=== PATIENT | male | born 1955 | race Caucasian/White ===

== ENCOUNTER 2017-10-09 19:14 | Emergency (ER) | payer OTHER ==
[~2017-10-09] VITALS: Ht 172.7 cm; Wt 90.7 kg
[2017-10-09] MEDS ORDERED: NEURONTIN300 MG PO (21:14)
--- NOTE | 2017-10-10 17:06 | EKG ---
[facility] [address] [facility] [place] [address] Signed Sinus rhythm with occasional premature ventricular complexes Left axis deviation Right bundle branch block Abnormal ECG No previous ECGs available Confirmed by OMAIRA JEAN BAPTISTE MD ([id number]) on 10/10/2017 5:06:34 PM Electronically Signed By: OMAIRA JEAN BAPTISTE MD 10/10/17 1706 PATIENT NAME: FRANKLYNJUAN JOSÉ Electrocardiogram DATE OF : 57 PHYSICIAN: OMAIRA JEAN BAPTISTE MD REPORT #: [id number] REPORT IS CONFIDENTIAL AND NOT TO BE RELEASED WITHOUT AUTHORIZATION
== END 2017-10-09 21:15 | disposition home or self-care (01) ==
LOC: ED 19:14
DX: R41.0 Disorientation, unspecified (principal); E11.9 Type 2 diabetes mellitus without complications; J44.9 Chronic obstructive pulmonary disease, unspecified; Z79.899 Other long term (current) drug therapy
CPT/HCPCS: 70450; 71045; 80053; 81001; 84484; 85025; 93005; 93010; 99284; G0480

== ENCOUNTER 2019-10-09 08:40 | Day surgery (SDC) | payer OTHER ==
[~2019-10-09] VITALS: Ht 172.7 cm; Wt 90.7 kg
--- NOTE | ~2019-10-09 | OR ---
[facility] [address] [place], [place] [address] Draft DATE OF OPERATION: 10/09/2019 SURGEON: Yony Gonzalez MD PREOPERATIVE DIAGNOSIS: Colon screening. POSTOPERATIVE DIAGNOSES: 1. Diverticulosis of colon. 2. Multiple polyps. PROCEDURE: Total colonoscopy to cecum with mucosal lift polypectomy (snare and Endo akbar tattoo) x3 and cold morcellation polypectomy x4. ANESTHESIA: Intravenous sedation, fentanyl 100 mcg and Versed 7 mg. INDICATION: A 64-year-old white man is a patient of Dr. Jimmy Mendoza, is here for a screening colonoscopy. He has no symptoms of bleeding diarrhea or constipation. He was due to have screening colonoscopy in 2008, but did not follow through with it at that time. This is his first colonoscopy. His family history is largely unknown regarding colon cancer. He understands the risks of bleeding, infection, and perforation related to colonoscopy and wished to proceed. FINDINGS: The prep was excellent. Complete colonoscopy was undertaken to the cecum. There were 3 polyps, all of them flat and adenomatous, 1 at 70 and other at 35, another at 33 cm. There was a small adenomatous polyp near a diverticulum in the right colon and a small similar such polyp at the rectosigmoid and 2 additional probably hyperplastic polyps of the rectum. All were excised completely. DESCRIPTION OF PROCEDURE: The patient was brought into the endoscopy suite and placed in lateral decubitus position, given intravenous sedation to the point of slurred speech and nystagmus with full cardiopulmonary monitoring. Digital rectal examination was normal. An Olympus video colonoscope was passed in the rectum and manipulated throughout the colon ultimately intubating the cecum. The ileocecal valve and appendiceal orifice were normal. The scope was withdrawn in the mid right colon was a small adenomatous polyp PATIENT NAME: JUAN JOSÉ ESTES OPERATIVE REPORT DATE OF : 57 REPORT #: [id number] PHYSICIAN: YONY GONZALEZ MD PCP: JIMMY MENDOZA MD REPORT IS CONFIDENTIAL AND NOT TO BE RELEASED WITHOUT AUTHORIZATION [facility] [address] [place], [place] [address] Draft adjacent to a diverticular opening. This polyp was excised with cold morcellation technique. The scope was withdrawn further and just beyond the splenic flexure at about 70 cm was a somewhat flat, somewhat suspicious adenomatous appearing polyp. Mucosal lift technique was deemed most advisable. On that basis, a sclerotherapy needle with spot tattoo material was injected allowing for mucosal lift. Using hot snare polypectomy technique, the mucosa was excised, the specimen was retrieved and passed for pathology. Scope was further withdrawn and a similar such lesion was noted at 38 cm, it was excised in the similar way 33 cm also excised similarly. Further withdrawal of scope showed a small adenomatous polyp of the rectosigmoid, which was excised with cold morcellation technique. Withdrawal to the rectum showed several small hyperplastic appearing polyps at least 2 of them were excised completely. Retroflexed view was otherwise normal. Scope was removed and the patient was taken to the recovery room in good condition. CONCLUSION DIAGNOSIS: 1. Multiple polyps. 2. Diverticulosis. PLAN: Recommend a repeat colonoscopy in 1 year due to the number of polyps excised. We will certainly review his pathology to be sure there is no dysplasia or other issues. Yony Gonzalez MD JM/MODL /[id number] cc: Jimmy Mendoza MD Copies: JIMMY MENDOZA MD ~ PATIENT NAME: JUAN JOSÉ ESTES OPERATIVE REPORT DATE OF : 57 REPORT #: [id number] PHYSICIAN: YONY GONZALEZ MD PCP: JIMMY MENDOZA MD REPORT IS CONFIDENTIAL AND NOT TO BE RELEASED WITHOUT AUTHORIZATION
[~2019-10-09 08:40] MED LIST: NEURONTIN300 MG PO
--- NOTE | 2019-10-09 10:58 | NUR ---
10/09/19 1058 Kelly Kay 1051 PATIENT ARRIVES TO PACU SLEEPING. AWAKENS WITH VERBAL STIMULI. RESP EVEN AND UNLABORED, NC AT 3 LITERS, TURNED OFF AFTER ARRIVAL TO PACU. 1052 PATIENT SLEEPING, AWAKENS WITH VERBAL STIMULI, FOLLOWS COMMANDS TO REPOSITION SELF ON TO BACK.
--- NOTE | 2019-10-12 10:46 | PATH ---
[facility] [address] [facility] [place] [address] Signed SPECIMEN(S): A ASCENDING POLYP SPECIMEN(S): B COLON POLYP AT 70 CM SPECIMEN(S): C COLON POLYP AT 38 CM SPECIMEN(S): D COLON POLYP AT 33 CM SPECIMEN(S): E RECTO SIGMOID POLYP SPECIMEN(S): F RECTAL POLYPS SPECIMEN SOURCE: A. ASCENDING POLYP B. COLON POLYP AT 70 CM C. COLON POLYP AT 38 CM D. COLON POLYP AT 33 CM E. RECTO SIGMOID POLYP F. RECTAL POLYPS CLINICAL HISTORY: Screening colonoscopy. Postop: Multiple polyps, diverticulosis. MICROSCOPIC DESCRIPTION: Histologic sections of all submitted blocks are examined by light microscopy. These findings, together with the gross examination, support the pathologic diagnosis. FINAL PATHOLOGIC DIAGNOSIS: A. Colon, ascending, polyp, polypectomy: - Fragments of tubular adenoma. - Negative for high-grade dysplasia or malignancy. B. Colon, polyp at 70 cm, polypectomy: - Fragments of tubular adenoma. - Negative for high-grade dysplasia or malignancy. C. Colon, polyp at 38 cm, polypectomy: - Fragments of tubular adenoma. - Negative for high-grade dysplasia or malignancy. D. Colon, polyp at 33 cm, polypectomy: - Tubular adenoma. - Negative for high-grade dysplasia or malignancy E. Colon, rectosigmoid, polyp, polypectomy: - Hyperplastic polyp. - Negative for dysplasia or malignancy. F. Rectum, multiple polyps, polypectomy: - Hyperplastic polyps. - Negative for dysplasia or malignancy. PATIENT NAME: JUAN JOSÉ ESTES PATHOLOGY DATE OF : 57 REPORT #: [id number] PHYSICIAN: AISLINN WORKMAN PCP: JIMMY WOODS MD REPORT IS CONFIDENTIAL AND NOT TO BE RELEASED WITHOUT AUTHORIZATION [facility] [address] [place], [place] [address] Signed NAL:cml:[id number] GROSS DESCRIPTION: Six specimens are received in six containers, labeled "RB." A. The specimen, labeled "RB," and designated on the requisition "ascending polyp," is received in formalin and consists of three castellon soft tissue fragments that measure 0.3 cm in greatest dimension. The specimen is entirely submitted in cassette (A1). B. The specimen, labeled "RB," and designated on the requisition "colon polyp at 70 cm," is received in formalin and consists of four castellon-black soft tissue polypoid fragments that measure 0.5 cm in greatest dimension. The specimen is entirely submitted in cassette (B1). C. The specimen, labeled "RB," and designated on the requisition "colon polyp at 38 cm," is received in formalin and consists of three castellon-dark brown soft tissue polypoid fragments that measure 0.6 cm in greatest dimension. The specimen is entirely submitted in cassette (C1). D. The specimen, labeled "RB," and designated on the requisition "colon polyp at 33 cm," is received in formalin and consists of one castellon-dark brown soft tissue polypoid fragment that measures 0.7 cm in greatest dimension. The specimen is inked black, bisected, and entirely submitted in cassette (D1). E. The specimen, labeled "RB," and designated on the requisition "rectosigmoid polyp," is received in formalin and consists of two castellon soft tissue fragments that measure 0.3 cm in greatest dimension. The specimen is entirely submitted in cassette (E1). F. The specimen, labeled "RB," and designated on the requisition "rectal polyps," is received in formalin and consists of two castellon soft tissue fragments that measure 0.2 cm in greatest dimension. The specimen is entirely submitted in cassette (F1). AT (under the direct supervision of a pathologist) The Gross Description was prepared using a voice recognition system. The report was reviewed for accuracy; however, sound-alike word errors, addition and/or deletions may occur. If there is any question about this report, please contact Client Services. PERFORMING LABORATORY: The technical component was performed [place] [address] (Regional Sales Engineer: Rajwinder Felipe MD; CLIA# [id number]). [facility], [address] [place] [address]. 107, PATIENT NAME: JUAN JOSÉ ESTES PATHOLOGY DATE OF : 57 REPORT #: [id number] PHYSICIAN: AISLINN PATHOLOGY PCP: JIMMY WOODS MD REPORT IS CONFIDENTIAL AND NOT TO BE RELEASED WITHOUT AUTHORIZATION [facility] [address] [place], [place] [address] Signed [place], [place] [address] (CLIA# [id number]). Diagnostician: Destiny Romano MD Pathologist Electronically Signed 10/12/2019 Copies: ~ PATIENT NAME: JUAN JOSÉ ESTES PATHOLOGY DATE OF : 57 REPORT #: [id number] PHYSICIAN: AISLINN WORKMAN PCP: JIMMY WOODS MD REPORT IS CONFIDENTIAL AND NOT TO BE RELEASED WITHOUT AUTHORIZATION
== END 2019-10-09 11:55 | disposition home or self-care (01) ==
LOC: OPS 08:40 → DS 08:40 → OPS 09:30
PROVIDERS: Surgery
PROC: 0DBE8ZZ Excision of Large Intestine, Via Natural or Artificial Opening Endoscopic (ICD-10-PCS; 2019-10-09)
PROC: 0DBN8ZZ Excision of Sigmoid Colon, Via Natural or Artificial Opening Endoscopic (ICD-10-PCS; 2019-10-09)
PROC: 0DBP8ZZ Excision of Rectum, Via Natural or Artificial Opening Endoscopic (ICD-10-PCS; 2019-10-09)
PROC: 0DBK8ZZ Excision of Ascending Colon, Via Natural or Artificial Opening Endoscopic (ICD-10-PCS; principal; 2019-10-09 09:45)
DX: Z12.11 Encounter for screening for malignant neoplasm of colon (principal); D12.2 Benign neoplasm of ascending colon; K62.1 Rectal polyp; K57.30 Diverticulosis of large intestine without perforation or abscess without bleeding; E11.9 Type 2 diabetes mellitus without complications
CPT/HCPCS: 99153; G0500; J2250; J3010; J7121

== ENCOUNTER 2024-03-16 06:20 | Day surgery (SDC) | payer OTHER ==
[~2024-03-16] VITALS: Ht 175.3 cm; Wt 93.0 kg
[~2024-03-16 06:20] MED LIST changes: +MIDAZOLAM HCL 5 MG/5 ML VIAL IV PRN; +VITAMIN D325 MC2 PO; +fentaNYL citrate 100 MCG/2 ML VIAL IV PRN
[2024-03-16 06:41] VITALS: BP 129/65
[2024-03-16] MEDS ORDERED: fentaNYL citrate 100 MCG/2 ML VIAL ONE (06:42)
[2024-03-16] MEDS ORDERED: MIDAZOLAM HCL 5 MG/5 ML VIAL ONE (06:42)
[2024-03-16] MEDS ORDERED: METFORMIN HCL1000 MG (06:44)
[2024-03-16] MEDS ORDERED: LIDOCAINE HCL 1% 5 ML SDV INJ ONE (07:00)
[2024-03-16] MEDS ORDERED: LACTATED RINGER'S 1,000 ML IV SCH (07:00)
[2024-03-16] MEDS ORDERED: IBLOOD GLUCOSE TEST STRIP 1 EA TEST VI PRN (07:00)
--- NOTE | 2024-03-16 07:10 | NUR ---
WILL CALL FRIEND CLAUDIA FOR RIDE HOME.
[2024-03-16] MEDS ORDERED: CEFAZOLIN SODIUM 2 GM/20 ML SYR ONE (07:18)
--- NOTE | 2024-03-16 08:43 | NUR ---
03/16/24 0843 Torsten Kyle 0837: PT ARRIVED TO PACU VIA STRETCHER. PT RESPONDS TO VERBAL STIMULI. PT ON 3L NC AT THIS TIME. PT ON LEFT SIDE. ABDOMEN SOFT AT THIS TIME.
[2024-03-16 09:14] VITALS: BP 101/59
--- NOTE | 2024-03-18 12:25 | OR ---
[facility] [address] [place], [place] [address] Signed DATE OF OPERATION: 03/16/2024 SURGEON: Yony Gonzalez MD PREOPERATIVE DIAGNOSIS: History of multiple polyps and diverticulosis 2022. POSTOPERATIVE DIAGNOSIS: Polyps times 4+. PROCEDURE: Total colonoscopy to cecum with cold snare polypectomy x1 and cold morcellation polypectomy x4. ANESTHESIA: Intravenous sedation; fentanyl 100 mcg, Versed 7 mg. INDICATION: This 68-year-old white man is a patient of KELSEA Huerta and it was recommended by me to have repeat colonoscopy within two years based on numerous polyps identified in 2022. He was confirmed to have three tubular adenomas and essentially three hyperplastic polyps. He has no current symptoms of bleeding, diarrhea, or constipation and self described known "hemorrhoids." He is admitted to undergo early surveillance. He understands the risk of bleeding, infection, and perforation. FINDINGS: Areas of Endo akbar tattoo dye were noted throughout the colon from previous large polypectomy sites. He had diverticulosis of the sigmoid and left colon. He did have four polyps located in three locations total. One was the right colon, the other mid sigmoid and two in the rectum. There were no worrisome findings , though they all appeared to be adenomatous. PROCEDURE IN DETAIL: The patient was brought to the endoscopy suite and placed in the lateral decubitus position, given intravenous sedation to the point of slurred speech and nystagmus. Digital rectal examination was normal. An Olympus video colonoscope was passed in the rectum and manipulated throughout the colon noting diverticula of the sigmoid and areas of Endo akbar tattoo dye from prior complex polypectomies. Scope was ultimately passed to the right colon where a sessile Electronically Signed By: YONY GONZALEZ MD 03/18/24 1225 PATIENT NAME: JUAN JOSÉ ESTES OPERATIVE REPORT DATE OF : 57 REPORT #: [id number] PHYSICIAN: YONY GONZALEZ MD PCP: DILMA HERRERA PAC REPORT IS CONFIDENTIAL AND NOT TO BE RELEASED WITHOUT AUTHORIZATION [facility] [address] [place], [place] [address] Signed polyp was noted, this was excised with cold snare technique. The scope was further advanced ultimately to the cecum. The ileocecal valve and appendiceal orifice were normal. Scope was withdrawn. Examination undertaken confirming good hemostasis in the right colon polypectomy site. Further withdrawal showed no abnormality until the proximal sigmoid colon where a small polyp was noted, this was excised with cold morcellation technique. Further withdrawal showed another similar polyp also excised in a similar way and ultimately in the rectum two small polyps, possibly adenomas, possibly hyperplastic; despite narrow band imaging application, both were excised. Retroflexed view showed no other findings of concern. The scope was withdrawn, removed and the patient was taken to the recovery room in good condition. CONCLUDING DIAGNOSIS: Polyps x4. PLAN: Recommend repeat colonoscopy in 5 years, sooner if clinically indicated. He will return to the ongoing care of Dilma Herrera. MD TOMA Weinberg/ASTRID /[id number] cc: Dilma Herrera., PA Copies: ~ Electronically Signed By: YONY GONZALEZ MD 03/18/24 1225 PATIENT NAME: JUAN JOSÉ ESTES OPERATIVE REPORT DATE OF : 57 REPORT #: [id number] PHYSICIAN: YONY GONZALEZ MD PCP: DILMA HERRERA PAC REPORT IS CONFIDENTIAL AND NOT TO BE RELEASED WITHOUT AUTHORIZATION
--- NOTE | 2024-03-20 12:33 | PATH ---
[facility] [address] [facility] [place] [facility] [place], [place] [address] Signed SPECIMEN(S): A SIGMOID POLYP SPECIMEN(S): B SIGMOID POLYP #2 SPECIMEN(S): C RECTAL POLYP SPECIMEN(S): D ASCENDING POLYP SPECIMEN SOURCE: A. SIGMOID POLYP B. SIGMOID POLYP #2 C. RECTAL POLYP D. ASCENDING POLYP CLINICAL HISTORY: Pre: 09/2022 multiple polyps, diverticulosis. Post: Diverticulosis polyps FINAL PATHOLOGIC DIAGNOSIS: A. Colon, sigmoid polyp, biopsy: - Multiple fragments of tubular adenoma. B. Colon, sigmoid polyp #2, biopsies: - No significant histopathology. - There is no evidence of neoplasia. C. Rectum, polyps, biopsy: - Hyperplastic polyps (multiple). - Two fragments demonstrate features of an intramucosal lymphoid nodule. D. Colon, ascending polyp, biopsy: - Hyperplastic polyp. COMMENT: A. There is no evidence of high grade dysplasia or malignancy. B. The sections from the specimen are architecturally normal without crypt distortion. There is no acute or chronic inflammation. There are no abnormal infiltrates. There is no evidence of inflammatory, hyperplastic or adenomatous polyps. C, D. There is no evidence of dysplasia or malignancy. K MICROSCOPIC EXAMINATION: Histologic sections of all submitted blocks are examined by light microscopy. These findings, together with the gross examination, support the pathologic diagnosis. GROSS DESCRIPTION: PATIENT NAME: JUAN JOSÉ ESTES PATHOLOGY DATE OF : 57 REPORT #: [id number] PHYSICIAN: AISLINN PATHOLOGY PCP: DILMA HERRERA PAC REPORT IS CONFIDENTIAL AND NOT TO BE RELEASED WITHOUT AUTHORIZATION [facility] [address] [place], [place] [address] Signed A. The specimen, labeled and designated "Brandsen, R, sigmoid polyp #1," is received in formalin and consists of two castellon soft tissue fragments, ranging from 0.1-0.4 cm. Entirely submitted in (A1). B. The specimen, labeled and designated "Brandsen, R, sigmoid polyp #2," is received in formalin and consists of two castellon soft tissue fragments, ranging from 0.2-0.4 cm. Entirely submitted in (B1). C. The specimen, labeled and designated "Brandsen, R, rectal polyp," is received in formalin and consists of six castellon soft tissue fragments, ranging from 0.2-0.4 cm. Entirely submitted in (C1). D. The specimen, labeled and designated "Brandsen, R, ascending polyp," is received in formalin and consists of one castellon soft tissue fragment, 0.5 cm. Entirely submitted in (D1). AB (under the direct supervision of a pathologist) The Gross Description was prepared using a voice recognition system. The report was reviewed for accuracy; however, sound-alike word errors, addition and/or deletions may occur. If there is any question about this report, please contact Client Services. ADDITIONAL NOTES: Immunohistochemical and/or in situ hybridization studies if performed in this case included appropriate positive controls that reacted as expected. This test was developed and its performance characteristics determined by [employer]. It has not been cleared or approved by the U.S. Food and Drug Administration. The FDA has determined that such clearance or approval is not necessary. This test is used for clinical purposes. It should not be regarded as investigational or for research. [facility] is certified under the Clinical Laboratory Improvement Amendments of 1988 (CLIA) as qualified to perform high complexity clinical laboratory testing. PERFORMING LABORATORY: Technical component was performed by [facility], [facility] [place] [address] (CLIA# [id number]). Professional interpretation was performed by [facility], [address] [place] [address] (CLIA#:[id number]). Diagnostician: Rhett Lam MD Pathologist Electronically Signed 03/20/2024 PATIENT NAME: JUAN JOSÉ ESTES PATHOLOGY DATE OF : 57 REPORT #: [id number] PHYSICIAN: AISLINN PATHOLOGY PCP: DILMA HERRERA PAC REPORT IS CONFIDENTIAL AND NOT TO BE RELEASED WITHOUT AUTHORIZATION [facility] [address] [place], [place] [address] Signed Copies: ~ PATIENT NAME: JUAN JOSÉ ESTES PATHOLOGY DATE OF : 57 REPORT #: [id number] PHYSICIAN: AISLINN WORKMAN PCP: DILMA HERRERA PAC REPORT IS CONFIDENTIAL AND NOT TO BE RELEASED WITHOUT AUTHORIZATION
== END 2024-03-16 09:30 | disposition home or self-care (01) ==
LOC: DS 06:20
PROVIDERS: ATTEND Surgery
PROC: 0DBN8ZZ Excision of Sigmoid Colon, Via Natural or Artificial Opening Endoscopic (ICD-10-PCS; 2024-03-16)
PROC: 0DBP8ZZ Excision of Rectum, Via Natural or Artificial Opening Endoscopic (ICD-10-PCS; 2024-03-16)
PROC: 0DBF8ZZ Excision of Right Large Intestine, Via Natural or Artificial Opening Endoscopic (ICD-10-PCS; principal; 2024-03-16 07:30)
DX: D12.5 Benign neoplasm of sigmoid colon (principal); K62.1 Rectal polyp; K63.5 Polyp of colon; E11.9 Type 2 diabetes mellitus without complications; F17.200 Nicotine dependence, unspecified, uncomplicated; Z79.84 Long term (current) use of oral hypoglycemic drugs; Z86.0101 Personal history of adenomatous and serrated colon polyps
CPT/HCPCS: 99153; G0500; J2250; J3010; J7121